=== PATIENT | female | born 1955 | race Caucasian/White ===

== ENCOUNTER 2017-04-08 22:04 | Emergency (ER) | payer OTHER ==
[~2017-04-08] VITALS: Ht 167.6 cm; Wt 61.2 kg
[~2017-04-08 22:04] MED LIST: COZAAR100 MG; DICLOFENAC POTA50 MG; GLIMEPIRIDE1 MG; INDAPAMIDE1.25 MG; JANUMET 50-1,1 UDTAB; LIPITOR20 MG; OSEL75CA PO; ZETIA10 MG; ZYNCOF 20-400120 ML PO
[2017-04-09] MEDS ORDERED: PROMETH-CODEIN 65 ML PO (02:57)
[2017-04-09] MEDS ORDERED: SYMBICORT 16010.2 GM IH (02:57)
[2017-04-09] MEDS ORDERED: MEDROLPACK PO (02:57)
[2017-04-09] MEDS ORDERED: MUCINEX DM ER1 EAC1 PO (02:57)
[2017-04-09] MEDS ORDERED: VENTOLIN HFA18 GM IH (02:57)
[2017-04-09] MEDS ORDERED: CEFDINIR300 MG PO (02:57)
== END 2017-04-09 03:09 | disposition home or self-care (01) ==
LOC: ER 22:04
DX: R06.02 Shortness of breath (principal); J40 Bronchitis, not specified as acute or chronic

== ENCOUNTER → 2017-06-05 | Emergency (ER) | payer OTHER ==
[~2017-06-05] VITALS: Ht 167.6 cm; Wt 65.8 kg
[~2017-06-05] MED LIST changes: +CEFDINIR300 MG PO; +MEDROLPACK PO; +MUCINEX DM ER1 EAC1 PO; +PROMETH-CODEIN 65 ML PO; +SYMBICORT 16010.2 GM IH; +VENTOLIN HFA18 GM IH
== END | disposition home or self-care (01) ==
LOC: ER 21:18
DX: B34.9 Viral infection, unspecified (principal)

== ENCOUNTER 2018-07-26 16:08 | Emergency (ER) | payer OTHER ==
[~2018-07-26] VITALS: Ht 167.6 cm; Wt 70.3 kg
== END 2018-07-26 20:42 | disposition home or self-care (01) ==
LOC: ER 16:08
DX: J11.1 Influenza due to unidentified influenza virus with other respiratory manifestations (principal); K29.70 Gastritis, unspecified, without bleeding